=== PATIENT | male | born 1955 | race Hispanic/Latino ===

== ENCOUNTER 2020-11-16 17:24 | Inpatient (IN) | payer OTHER ==
--- NOTE | 2020-11-16 17:33 | Emergency Department Report ---
ED Chest Pain HPI - General Chief Complaint: Chest Pain Stated Complaint: CHEST PAIN PUI?: No Time Seen by Provider: 11/16/20 17:33 Source: patient, EMS ( EMS documentation not available at time of chart dictation ) Mode of arrival: Stretcher Limitations: No Limitations - History of Present Illness Initial Comments: The patient was evaluated in the emergency department for symptoms described in the history of present illness. He/she was evaluated in the context of the global COVID-19 pandemic, which necessitated consideration that the patient might be at risk for infection with the virus that causes COVID-19. Institution al protocols and algorithms that pertain to the evaluation of patients at risk for COVID-19 are in a state of rapid change based on information released by regulatory bodies including the CDC and federal and state organizations. These policies and algorithms were followed during the patient's care in the emergency department. Please note that these policies, procedures and recommendations changed on a rapid basis. Cardiology: [facility], Dr. Mcmillan Past medical history heart disease, 2 stents, takes aspirin on a daily basis. The patient is a 64-year-old gentleman who is not known to myself previously. He reports compliance with his medications. He denies travel, surgery, DVT and pulmonary embolism risk factors. The patient presents to the ER via EMS. Patient states he was in his usual state of health, when approximately 2 hours ago, he developed sudden severe cru shing chest pain, which radiates down his right upper extremity, and he states feels like "to high heels sitting on my chest." He had diaphoresis which is now resolved. He had nausea which is now resolved. He had shortness of breath which is now resolved. He took aspirin prior to arrival. He took 4 tablets of nitroglycerin in total prior to arrival, which decreased his pain from a 10 to a 9. He denies fever, loss of taste and loss of smell. He denies erectile dysfunction medication utilization. He denies methamphetamine/cocaine/illicit drug use. He denies vomiting, hematemesis and bright red blood per rectum. He is still having active pain at this time. MD Complaint: chest pain -: Sudden, hour(s) (2) Onset: during rest Pain Location: substernal Pain Radiation: RUE Severity: severe Severity scale (0 -10): 10 Quality: pressure Consistency: constant Improves With: nothing Worsens With: nothing Treatments Prior to Arrival: aspirin, nitroglycerin Aspirin use within the Past 7 Days: (1) Yes - Related Data Home Medications Medication Instructions Recorded Confirmed Last Taken Aspirin 81 mg PO QDAY 07/05/13 07/05/13 07/05/13 Clopidogrel [Plavix] 75 mg PO QDAY 07/05/13 07/05/13 07/05/13 Nitroglycerin 1 tab-cap SUBLINGUAL PRN 07/05/13 07/05/13 Unknown Simvastatin [Zocor TAB] 40 mg PO QDAY 07/05/13 07/05/13 Unknown Allergies Allergy/AdvReac Type Severity Reaction Status Date / Time No Known Allergies Allergy Unverified 07/05/13 11:07 Heart Score - HEART Score History: Highly suspicious EKG: Significant ST-depression Age: 45-65 Risk factors: 1-2 risk factors Troponin: < normal limit HEART Score: 6 - Critical Actions Critical Actions: 4-6 pts:12-16.6% risk of adverse cardiac event. Should be admitted ED Review of Systems ROS: Stated complaint: CHEST PAIN Other details as noted in HPI Constitutional: denies: fever Eyes: denies: vision change ENT: denies: epistaxis Respiratory: shortness of breath. denies: cough Cardiovascular: chest pain Gastrointestinal: nausea. denies: hematemesis, melena, hematochezia Genitourinary: denies: dysuria Musculoskeletal: denies: back pain Neurological: denies: weakness Hematological/Lymphatic: denies: easy bleeding ED Past Medical Hx - Past Medical History Previous Medical History?: Yes Hx GERD: Yes (related to work stress) Additional medical history: angina - Surgical History Past Surgical History?: Yes Hx Coronary Stent: Yes (2010) - Medications Home Medications: Home Medications Medication Instructions Recorded Confirmed Last Taken Type Aspirin 81 mg PO QDAY 07/05/13 07/05/13 07/05/13 History Clopidogrel [Plavix] 75 mg PO QDAY 07/05/13 07/05/13 07/05/13 History Nitroglycerin 1 tab-cap SUBLINGUAL PRN 07/05/13 07/05/13 Unknown History Simvastatin [Zocor TAB] 40 mg PO QDAY 07/05/13 07/05/13 Unknown History ED Physical Exam - General Limitations: No Limitations General appearance: alert, in no apparent distress - Head Head exam: Present: atraumatic, normocephalic - Eye Eye exam: Present: normal appearance, EOMI. Absent: nystagmus - ENT ENT exam: Present: normal exam, normal orophraynx, mucous membranes moist, normal external ear exam - Neck Neck exam: Present: normal inspection, full ROM. Absent: tenderness, meningismus - Respiratory Respiratory exam: Present: normal lung sounds bilaterally. Absent: respiratory distress, wheezes, rales, rhonchi, stridor, chest wall tenderness, accessory muscle use, decreased breath sounds, prolonged expiratory - Cardiovascular Cardiovascular Exam: Present: regular rate, normal rhythm, normal heart sounds. Absent: bradycardia, tachycardia, irregular rhythm, systolic murmur, diastolic murmur, rubs, gallop - GI/Abdominal GI/Abdominal exam: Present: soft, normal bowel sounds. Absent: distended, tenderness, guarding, rebound, rigid, pulsatile mass - Rectal Rectal exam: Present: deferred - Extremities Exam Extremities exam: Present: normal inspection, full ROM, other (2+ pulses noted in the bilateral upper and lower extremities. There is no palpable cord. negative Homans sign. Muscular compartments are soft. The pelvis is stable.). Absent: pedal edema, calf tenderness - Back Exam Back exam: Present: normal inspection, full ROM. Absent: tenderness, CVA tenderness (R), CVA tenderness (L), paraspinal tenderness, vertebral tenderness - Neurological Exam Neurological exam: Present: alert, oriented X3, normal gait, other (No facial droop. Tongue midline. Extraocular movements intact bilaterally. Facial sensation intact to light touch in V1, V2, V3 distribution bilaterally. 5 and a 5 strength in 4 extremities. Sensation intact to light touch in 4 extremities.). Absent: motor sensory deficit - Psychiatric Psychiatric exam: Present: anxious - Skin Skin exam: Present: warm, dry, intact, normal color. Absent: rash ED Course Vital Signs 11/16/20 11/16/20 11/16/20 17:31 17:32 17:45 Temperature Pulse Rate 60 60 Pulse Rate [ Right Ulnar] Respiratory 18 18 17 Rate Blood Pressure 123/63 Blood Pressure 123/63 [Left] O2 Sat by Pulse 100 100 100 Oximetry 11/16/20 11/16/20 11/16/20 18:13 18:16 20:00 Temperature 97.7 F 98.1 F Pulse Rate 56 L 60 73 Pulse Rate [ Right Ulnar] Respiratory 17 17 Rate Blood Pressure Blood Pressure 95/67 116/68 [Left] O2 Sat by Pulse 100 100 Oximetry 11/16/20 11/16/20 11/16/20 20:04 20:10 20:15 Temperature Pulse Rate 67 Pulse Rate [ 73 Right Ulnar] Respiratory 12 Rate Blood Pressure 119/65 119/65 Blood Pressure [Left] O2 Sat by Pulse 95 97 99 Oximetry 11/16/20 11/16/20 11/16/20 20:20 20:23 20:30 Temperature 98.1 F Pulse Rate 64 67 Pulse Rate [ Right Ulnar] Respiratory 18 11 L Rate Blood Pressure 100/68 100/68 Blood Pressure [Left] O2 Sat by Pulse 97 98 Oximetry 11/16/20 11/16/20 11/17/20 20:40 20:54 00:00 Temperature 97.8 F Pulse Rate 69 62 Pulse Rate [ Right Ulnar] Respiratory 15 Rate Blood Pressure 99/69 Blood Pressure [Left] O2 Sat by Pulse 95 Oximetry 11/17/20 00:04 Temperature Pulse Rate Pulse Rate [ 61 Right Ulnar] Respiratory Rate Blood Pressure Blood Pressure [Left] O2 Sat by Pulse 99 Oximetry - Consultations Consultation #1: 11/16/20 17:53 Discussed patient's history, physical, and EKG with rn school, Dr. Malin. He personally has examined the patient's EKG. We agree that the EKG is consistent with posterior wall STEMI. Patient has already taken aspirin. Dr. Malin recommends heparin drip. He agrees with activating code STEMI overhead. Consultation #2: 11/16/20 18:05 Discussed history, physical, EKG findings with critical care physician on-call, Dr. Middleton, who agrees with placement into the intensive care unit. Patient resting comfortably in stretcher at this time IVANNA score - Ivanna Score Age > 65: (0) No Aspirin use within the Past 7 Days: (1) Yes 3 or more CAD Risk Factors: (1) Yes 2 or more Angina events in past 24 hrs: (1) Yes Known CAD with more than 50% Stenosis: (1) Yes Elevated Cardiac Markers: (0) No ST Deviation Greater than 0.5mm: (1) Yes IVANNA Score: 5 ED Medical Decision Making - Lab Data Result diagrams: 11/16/20 17:42 11/16/20 17:42 Vital Signs 11/16/20 11/16/20 17:31 17:32 Pulse Rate 60 60 Respiratory 18 18 Rate Blood Pressure 123/63 Blood Pressure 123/63 [Left] O2 Sat by Pulse 100 100 Oximetry Lab Results 11/16/20 11/16/20 11/16/20 Range/Units 17:42 17:42 17:42 WBC 12.9 H (4.5-11.0) K/mm3 RBC 4.93 (3.65-5.03) M/mm3 Hgb 15.4 H (11.8-15.2) gm/dl Hct 45.5 (35.5-45.6) % MCV 92 (84-94) fl MCH 31 (28-32) pg MCHC 34 (32-34) % RDW 14.1 (13.2-15.2) % Plt Count 245 (140-440) K/mm3 PT 14.8 (12.2-14.9) Sec. INR 1.18 H (0.87-1.13) APTT 26.2 (24.2-36.6) Sec. Sodium 135 L (137-145) mmol/L Potassium 4.0 (3.6-5.0) mmol/L Chloride 99.3 (98-107) mmol/L Carbon Dioxide 25 (22-30) mmol/L Anion Gap 15 mmol/L BUN 19 (9-20) mg/dL Creatinine 0.9 (0.8-1.3) mg/dL Estimated GFR > 60 ml/min BUN/Creatinine Ratio 21 % Glucose 122 H (75-100) mg/dL Calcium 9.2 (8.4-10.2) mg/dL Total Bilirubin 0.40 (0.1-1.2) mg/dL AST 17 (5-40) units/L ALT 20 (7-56) units/L Alkaline Phosphatase 86 (35-129) units/L Troponin T < 0.010 (0.00-0.029) ng/mL Total Protein 6.3 (6.3-8.2) g/dL Albumin 4.4 (3.9-5) g/dL Albumin/Globulin Ratio 2.3 % Lipase 28 (13-60) units/L - EKG Data -: EKG Interpreted by Me - EKG Data 11/16/20 17:54 The EKG today is consistent with a STEMI. Sinus rhythm, normal axis, bradycardia, incomplete right bundle branch block, left ventricular hypertrophy, ST depression in V1, V2, V3, V4. This EKG is consistent with a STEMI. It is suggestive of a posterior wall myocardial infarction - Radiology Data Radiology results: pending, image reviewed interpreted by me: 1 view x-ray of the chest, interpreted by myself, no pneumothorax, no infiltrates, unremarkable osseous anatomy, cardiac silhouette within normal limits. - Medical Decision Making Differential diagnosis, including but not limited to: Acute coronary syndrome, pericarditis, myocarditis, GERD, gastritis, hiatal hernia Assessment and plan: 64-year-old gentleman, with known history of heart disease, stents, last cardiac catheterization 10 years ago, who reports compliance with his medications, who denies DVT and pulmonary embolism risk factors, who is not currently tachycardic, tachypneic or hypoxic, low risk by Wells criteria, with history suggestive of active ischemic heart disease, and EKG suggestive of posterior myocardial infarction. 2 large-bore IVs, aspirin has already been given, start nitroglycerin, fluids, morphine for pain control, and heparin drip. Interventional cardiology, Dr. Malin, advises activation of the cardiac catheterization lab, which I agree with. Patient updated on plan of care, and he is currently agreeable to this plan of care. Hospital physician, Dr. Bertrand Perera to admit Critical Care Time: Yes Critical care time in (mins) excluding proc time.: 35 Critical care attestation.: If time is entered above; I have spent that time in minutes in the direct care of this critically ill patient, excluding procedure time. ED Disposition Clinical Impression: STEMI (ST elevation myocardial infarction) Qualifiers: Involved coronary artery: other coronary artery Qualified Code(s): I21.29 - ST elevation (STEMI) myocardial infarction involving other sites Disposition: DC-09 OP ADMIT IP TO THIS HOSP Is pt being admited?: Yes Does the pt Need Aspirin: No (already took aspirin) Condition: Critical
[2020-11-16] MEDS ORDERED: NITROGLYCERIN 0.4 MG TAB SUBL SL PRN (17:46)
[2020-11-16] MEDS ORDERED: ONDANSETRON 4 MG/2 ML INJ IV ONE (17:46)
[2020-11-16] MEDS ORDERED: MORPHINE 4 MG/1 ML INJ IV ONE (17:46)
[2020-11-16] MEDS ORDERED: SODIUM CHLORIDE 0.9% 500 ML 500 ML IV ONE (17:46)
[2020-11-16] MEDS ORDERED: HEPARIN 10,000 UNITS/10 ML VIAL IV ONE (17:47)
[2020-11-16] MEDS ORDERED: HEPARIN/ 0.45% NACL DRIP 25,000 UNIT/500 ML BAG IV SCH (18:00)
[2020-11-16 18:05] LABS: Hematocrit 45.5 % (35.5-45.6); Hemoglobin 15.4 gm/dl (11.8-15.2); Mean Corpuscular HGB Conc 34 % (32-34); Mean Corpuscular Volume 92 fl (84-94); Platelet Count 245 K/mm3 (140-440); Red Blood Count 4.93 M/mm3 (3.65-5.03); Red Cell Distribution Width 14.1 % (13.2-15.2)
[2020-11-16 18:13] LABS: INR 1.18 (0.87-1.13); Partial Thromboplastin Time 26.2 Sec. (24.2-36.6)
[2020-11-16] MEDS ORDERED: MIDAZOLAM 2 MG/2 ML INJ ONE (18:16)
[2020-11-16] MEDS ORDERED: VERAPAMIL 5 MG/2 ML INJ ONE (18:16)
[2020-11-16] MEDS ORDERED: LIDOCAINE (2%) 20 MG/1 ML VIAL 20 ML MDV INFILTRATI ONE (18:16)
[2020-11-16] MEDS ORDERED: HEPARIN/NS 5000 UNIT/500ML 1,000 ML IR ONE (18:16)
[2020-11-16] MEDS ORDERED: NITROGLYCERIN SYRINGE 3 ML ONE (18:17)
[2020-11-16 18:19] LABS: Alanine Aminotransferase 20 units/L (7-56); Albumin 4.4 g/dL (3.9-5); BUN/Creatinine Ratio 21; Blood Urea Nitrogen 19 mg/dL (9-20); Calcium 9.2 mg/dL (8.4-10.2); Hemolysis Index 4
[2020-11-16] MEDS: fentaNYL 100 MCG/2 ML INJ ONE ×2 (18:32→18:54)
[2020-11-16] MEDS ORDERED: SODIUM CHLORIDE 0.9% 1000 ML 1,000 ML ONE (18:35)
[2020-11-16] MEDS ORDERED: HEPARIN/NS 5000 UNIT/500ML 500 ML IR ONE (18:38)
[2020-11-16] MEDS: HEPARIN 10,000 UNITS/10 ML VIAL ONE ×3 (18:40→19:09)
[2020-11-16] MEDS ORDERED: EPINEPHrine 1 MG/10 ML SYRINGE ONE (18:47)
[2020-11-16] MEDS ORDERED: LIDOCAINE PF 100 MG/5 ML (CARDIAC SYRINGE) IV ONE (18:47)
[2020-11-16] MEDS ORDERED: ATROPINE 0.1% (1 MG/10 ML) CARDIAC SYRINGE ONE (18:47)
[2020-11-16] MEDS ORDERED: PHENYLEPHRINE/NS 1,000 MCG/10 ML SYRINGE (OR USE) IV ONE (18:48)
[2020-11-16] MEDS ORDERED: TIROFIBAN/NS 12,500 MCG/250 ML BAG IV ONE (18:56)
[2020-11-16] MEDS: TIROFIBAN/NS 12,500 MCG/250 ML BAG IV SCH (19:09)
--- NOTE | 2020-11-16 19:09 | XRay Report ---
CHEST 1 VIEW INDICATION: Chest Pain. COMPARISON: None. FINDINGS: Support devices: None. Heart: Normal. Lungs/Pleura: No consolidation or effusion, no pneumothorax. There are mild bilateral reticular racheal ngs. IMPRESSION: 1. Mild increased interstitial markings in both lungs are of uncertain chronicity. No consolidation o r effusion. Signer Name: William Burns MD Signed: 11/16/2020 7:04 PM Workstation Name: [id number]
[2020-11-16] MEDS ORDERED: ALUM-MAG HYDROXIDE-SIMETHICONE 200-200-20MG/5ML ORAL LIQD 30 ML ONE (19:19)
[2020-11-16] MEDS ORDERED: TICAGRELOR 90 MG TAB ONE (19:19)
[2020-11-16] MEDS ORDERED: HYDROcodone/ACETAMINOPHEN 5-325 MG TAB PO PRN (19:36)
--- NOTE | 2020-11-16 19:47 | Consultation ---
History of Present Illness Consult date: 11/16/20 Requesting physician: BENIGNO TALLEY Consult reason: chest pain History of present illness: Patient is a 64-year-old gentleman with a history of hypertension coronary artery disease prior PCI smoking hyperlipidemia who presented to the hospital with chest pain. Apparently was changing a light bulb when he had a sudden onset of chest pain radiating to his back associated with shortness of breath. [place] lightheaded and diaphoretic. He called EMT and on arrival to the hospital was noted to have posterior [place]. Patient was emergently taken to the [facility] and he underwent PCI of late stent thrombosis of the circumflex. Postprocedure patient is doing very well. Currently describes no chest pain or shortness of breath. Patient is being admitted post PCI. Past History Past Medical History: CAD, hypertension, hyperlipidemia Past Surgical History: No surgical history Social history: smoking Medications and Allergies Allergies Allergy/AdvReac Type Severity Reaction Status Date / Time No Known Allergies Allergy Unverified 07/05/13 11:07 Home Medications Medication Instructions Recorded Confirmed Last Taken Type Aspirin 81 mg PO QDAY 07/05/13 07/05/13 07/05/13 History Clopidogrel [Plavix] 75 mg PO QDAY 07/05/13 07/05/13 07/05/13 History Nitroglycerin 1 tab-cap SUBLINGUAL PRN 07/05/13 07/05/13 Unknown History Simvastatin [Zocor TAB] 40 mg PO QDAY 07/05/13 07/05/13 Unknown History Active Meds: Active Medications Hydrocodone Bitart/Acetaminophen (Hydrocodone/Acetaminophen 5-325 Mg Tab) 1 each PO Q6H PRN PRN Reason: Pain, Moderate (4-6) Aspirin (Aspirin 81 Mg Tab Chew) 81 mg PO QDAY JARROD Atorvastatin Calcium (Atorvastatin 40 Mg Tab) 80 mg PO QHS JARROD Carvedilol (Carvedilol 3.125 Mg Tab) 6.25 mg PO BID JARROD Sodium Chloride (Nacl 0.9% 1000 Ml) 1,000 mls @ 75 mls/hr IV DIRECT JARROD Tirofiban/Sodium Chloride (Aggrastat Drip (12.5 Mg/250 Ml)) 12,500 mcg in 250 mls @ 0 mls/hr IV DIRECT JARROD; Protocol Nitroglycerin (Nitroglycerin 0.4 Mg Tab Subl) 0.4 mg SL .Q5MIN PRN PRN Reason: Chest Pain Pantoprazole Sodium (Pantoprazole 40 Mg Tab) 40 mg PO QDAC JARROD Ticagrelor (Ticagrelor 90 Mg Tab) 90 mg PO BID JARROD Review of Systems All systems: negative (As mentioned in the H&P) Physical Examination Vital Signs Pulse Resp BP Pulse Ox 60 18 123/63 100 11/16/20 17:31 11/16/20 17:31 11/16/20 17:31 11/16/20 17:31 General appearance: no acute distress HEENT: Positive: Normocephaly Neck: Positive: trachea midline Cardiac: Positive: Reg Rate and Rhythm Lungs: Positive: clear to auscultation Neuro: Positive: Grossly Intact Abdomen: Positive: Unremarkable Extremities: Present: normal Results 11/16/20 17:42 11/16/20 17:42 Cardiac Enzymes 11/16/20 Range/Units 17:42 AST 17 (5-40) units/L Coagulation 11/16/20 Range/Units 17:42 PT 14.8 (12.2-14.9) Sec. INR 1.18 H (0.87-1.13) APTT 26.2 (24.2-36.6) Sec. CBC 11/16/20 Range/Units 17:42 WBC 12.9 H (4.5-11.0) K/mm3 RBC 4.93 (3.65-5.03) M/mm3 Hgb 15.4 H (11.8-15.2) gm/dl Hct 45.5 (35.5-45.6) % Plt Count 245 (140-440) K/mm3 Comprehensive Metabolic Panel 11/16/20 Range/Units 17:42 Sodium 135 L (137-145) mmol/L Potassium 4.0 (3.6-5.0) mmol/L Chloride 99.3 (98-107) mmol/L Carbon Dioxide 25 (22-30) mmol/L BUN 19 (9-20) mg/dL Creatinine 0.9 (0.8-1.3) mg/dL Glucose 122 H (75-100) mg/dL Calcium 9.2 (8.4-10.2) mg/dL AST 17 (5-40) units/L ALT 20 (7-56) units/L Alkaline Phosphatase 86 (35-129) units/L Total Protein 6.3 (6.3-8.2) g/dL Albumin 4.4 (3.9-5) g/dL EKG interpretations - Telemetry EKG Rhythm: Sinus Rhythm (With significant anterior ST depression suggestive of posterior [place]) Assessment and Plan Impression: 1. Acute posterior [place] status post primary PCI 2. 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 Hypertension 4. Hyperlipidemia 5. Tobacco abuse Plan : 1. Routine pharmacological therapy post primary PCI 2. Aggrastat for 18 hours 3. Dual antiplatelet therapy for 1 year 4. Beta-blockers high-dose statins 5. 2D echo 6. Smoking cessation
[2020-11-16 20:23] LABS: Total Cells Counted 100
[2020-11-16 20:25] LABS: Ovalocytes Rare; Platelet Estimate Consistent w Auto
[2020-11-16] MEDS: SODIUM CHLORIDE 0.9% 1000 ML 1,000 ML IV SCH (20:30)
--- NOTE | 2020-11-16 20:34 | Cardiac Catherization Report ---
CORONARY ANGIOGRAM AND PERCUTANEOUS INTRAVENATION REPORT PROCEDURE PERFORMED: 1. Left and right coronary angiogram. 2. Left ventriculogram. 3. Percutaneous intervention of a stent thrombosis of the mid circumflex. EMAIL MANAGER: Dr. Liban Malin INDICATION: Acute posterior wall, ST elevation MS. PROCEDURE DETAILS: 1. The patient was prepped and draped in a sterile fashion after informed consent. 2. The right groin was anesthetized using local Lidocaine infiltration. 3. The right radial artery was entered using the Seldinger technique, followed by the placement of a 6-Palauan sheath. 4. Selective left and right coronary angiography was performed using 6-Palauan Emiliana catheters. Angiograms were done in multiple projections. 5. Selective left ventricular angiography was done using a 6-Palauan pigtail catheter. Left ventricular angiography was performed in the right anterior oblique projection. 6. The catheters were withdrawn, the sheath removed, and hemostasis was achieved. 7. The patient was transferred to the post cardiac catheterization unit in stable condition. There were no complications, equipment malfunction, or technical difficulties. 2. Angiograms were reviewed in the setting of an acute ST elevation MS and 100% occlusion of the circumflex, we decided to proceed with PCI of the circumflex. 3. Intravenous heparin was used to maintain therapeutic ACT. An Intravenous Aggrastat was also started. However, when we were trying to advance a 6-Palauan XB 3.5 guide catheter, there was significant radial spasm. The J wire was exchanged for a BMW wire. Then, a 2.0 balloon was advanced to the tip of the guide catheter, inflated at very low atmospheres and then the balloon and the guidewire advanced through the spasm. Following this, the balloon and the guidewire was removed and a J-wire was advanced over the aortic arch. The EBU 3.5 was then engaged in the left main coronary artery. The patient at time suddenly went into V-fib and was immediately cardioverted to normal sinus rhythm. The patient immediately became awake, but reported no significant chest pain or worsening of symptoms. A BMW wire was then used to cross the 100% occlusion of the mid circumflex. After initial pre-dilatation, a 2.75 x 18 mm Resolute drug-eluting stent was deployed across the stenosis with excellent results. The current stent and the overlap segment of the previous stent was postdilated with a 2.75 noncompliant balloon to high atmospheres. We noticed that there was a takeoff of a small to medium caliber OM branch with subtotal ostial occlusion with IVANNA 2 flow. As the patient was chest pain free, we decided to treat this medically. The wire and guide were removed. The patient was given 180 mg of Brilinta. Sheath was removed and TR band applied. The patient tolerated the procedure well, and had complete resolution of chest pain. FINDINGS: HEMODYNAMICS: AO 107/69, LV 110/28. ANGIOGRAM DETAILS: 1. Left main is angiographically normal. 2. LAD has mild luminal irregularities. 3. The circumflex is a medium caliber vessel. There is a 100% mid vessel late stent thrombosis noted. 4. The RCA is a medium to large caliber dominant vessel with moderate calcification, but no significant stenosis. 5. Left ventriculogram done in JACOB projection shows inferior hypokinesis, moderately reduced LV systolic function, EF 35-40%. CULPRIT LESION: 1. The mid circumflex late stent thrombosis. 2. Preprocedure IVANNA flow 0. 3. Preprocedure stenosis was 100%. 4. Postprocedure IVANNA flow is 3. 5. Postprocedural stenosis 0%. 6. Stent deployed 2.75 x 18 mm Resolute drug-eluting stent. IMPRESSION: 1. Status post primary PCI for late stent thrombosis of the mid LCx 2. One episode of yolanda procedural Vfib S/P successful cardioversion 3. Moderately reduced LV systolic function with inferior hypokinesis, EF 35-40%. PLAN: 1. Routine pharmacotherapy post-PCI. 2. Dual antiplatelet therapy for 1 year, preferably more. 3. Aggrastat for 18 hours. 4. Routine radial artery sheath care. Please note that patient had radial artery spasm. We had to use a guide wire and balloon technique to advance the guide catheter in the radial artery. This technical challenge contributed to the delay in the door to balloon tme. JOB# [id number] RR/NTS CHELSEAD
[2020-11-16] MEDS ORDERED: TICAGRELOR 90 MG TAB PO SCH (22:00)
[2020-11-16] MEDS ORDERED: carvediloL 3.125 MG TAB PO SCH (22:00)
[2020-11-16] MEDS ORDERED: carvediloL 6.25 MG TAB PO SCH (22:00)
--- NOTE | 2020-11-16 22:57 | History and Physical Report ---
History of Present Illness Date of examination: 11/16/20 Date of admission: 11/16/20 17:57 Chief complaint: Severe retrosternal chest pain for 2 hours History of present illness: 64-year-old gentleman presents to the ER via EMS. Patient states he was in his usual state of health, when approximately 2 hours ago, he developed sudden severe crushing chest pain, which radiates down his right upper extremity, and he states feels like "to high heels sitting on my chest." He had diaphoresis which is now resolved. He had nausea which is now resolved. He had shortness of breath which is now resolved. He took aspirin prior to arrival. He took 4 tablets of nitroglycerin in total prior to arrival, which decreased his pain from a 10 to a 9. He denies fever, loss of taste and loss of smell. He denies methamphetamine/cocaine/illicit drug use. He denies vomiting, hematemesis and bright red blood per rectum. He is still having active pain at this time. MD Complaint: chest pain -: Sudden, hour(s) (2) Onset: during rest Pain Location: substernal Pain Radiation: RUE Severity: severe Severity scale (0 -10): 10 Quality: pressure Consistency: constant Improves With: nothing Worsens With: nothing Treatments Prior to Arrival: aspirin, nitroglycerin Aspirin use within the Past 7 Days: (1) Yes Patient had ventricular fibrillation during the cardiac cath procedure which was cardioverted immediately - Heart Score - HEART Score History: Highly suspicious EKG: Significant ST-depression Age: 45-65 Risk factors: 1-2 risk factors Troponin: < normal limit HEART Score: 6 - Critical Actions Critical Actions: 4-6 pts:12-16.6% risk of adverse cardiac event. Should be admitted - Past Medical History Previous Medical History?: Yes Heart disease, 2 stents, takes aspirin on a daily basis. --angina --GERD: Yes (related to work stress) - Surgical History Past Surgical History?: Yes --Coronary Stent: Yes (2010) - Medications Home Medications: Home Medications Medication Instructions Recorded Confirmed Last Taken Type Aspirin 81 mg PO QDAY 07/05/13 07/05/13 07/05/13 History Clopidogrel [Plavix] 75 mg PO QDAY 07/05/13 07/05/13 07/05/13 History Nitroglycerin 1 tab-cap SUBLINGUAL PRN 07/05/13 07/05/13 Unknown History Simvastatin [Zocor TAB] 40 mg PO QDAY 07/05/13 07/05/13 Unknown History Review of Systems ROS: Stated complaint: CHEST PAIN Other details as noted in HPI Constitutional: denies: fever Eyes: denies: vision change ENT: denies: epistaxis Respiratory: shortness of breath. denies: cough Cardiovascular: chest pain Gastrointestinal: nausea. denies: hematemesis, melena, hematochezia Genitourinary: denies: dysuria Musculoskeletal: denies: back pain Neurological: denies: weakness Hematological/Lymphatic: denies: easy bleeding Past History Past Medical History: CAD, hypertension, hyperlipidemia Past Surgical History: No surgical history Social history: smoking Medications and Allergies Allergies Allergy/AdvReac Type Severity Reaction Status Date / Time No Known Allergies Allergy Unverified 07/05/13 11:07 Home Medications Medication Instructions Recorded Confirmed Last Taken Type Aspirin 81 mg PO QDAY 07/05/13 07/05/13 07/05/13 History Clopidogrel [Plavix] 75 mg PO QDAY 07/05/13 07/05/13 07/05/13 History Nitroglycerin 1 tab-cap SUBLINGUAL PRN 07/05/13 07/05/13 Unknown History Simvastatin [Zocor TAB] 40 mg PO QDAY 07/05/13 07/05/13 Unknown History Active Meds: Active Medications Hydrocodone Bitart/Acetaminophen (Hydrocodone/Acetaminophen 5-325 Mg Tab) 1 each PO Q6H PRN PRN Reason: Pain, Moderate (4-6) Aspirin (Aspirin 81 Mg Tab Chew) 81 mg PO QDAY JARROD Atorvastatin Calcium (Atorvastatin 40 Mg Tab) 80 mg PO QHS JARROD Carvedilol (Carvedilol 6.25 Mg Tab) 6.25 mg PO BID JARROD Sodium Chloride (Nacl 0.9% 1000 Ml) 1,000 mls @ 75 mls/hr IV DIRECT JARROD Last Admin: 11/16/20 20:30 Dose: 75 mls/hr Documented by: Tirofiban/Sodium Chloride (Aggrastat Drip (12.5 Mg/250 Ml)) 12,500 mcg in 250 mls @ 15 mls/hr IV DIRECT JARROD; Protocol Stop: 11/17/20 14:00 Last Admin: 11/16/20 19:09 Dose: 14.94 mls Documented by: Nitroglycerin (Nitroglycerin 0.4 Mg Tab Subl) 0.4 mg SL .Q5MIN PRN PRN Reason: Chest Pain Pantoprazole Sodium (Pantoprazole 40 Mg Tab) 40 mg PO QDAC JARROD Ticagrelor (Ticagrelor 90 Mg Tab) 90 mg PO BID JARROD Exam - Constitutional Vitals: Temp Pulse Resp BP Pulse Ox 98.1 F 69 15 99/69 95 11/16/20 20:23 11/16/20 20:40 11/16/20 20:40 11/16/20 20:40 11/16/20 20:40 General appearance: Present: no acute distress, well-nourished - EENT Eyes: Present: PERRL ENT: hearing intact, clear oral mucosa - Neck Neck: Present: supple, normal ROM - Respiratory Respiratory effort: normal Respiratory: bilateral: CTA - Cardiovascular Heart rate: 78 Rhythm: regular Heart Sounds: Present: S1 & S2. Absent: rub, click - Extremities Extremities: no ischemia, pulses intact, pulses symmetrical, No edema Peripheral Pulses: within normal limits - Abdominal General gastrointestinal: Present: soft, non-tender, non-distended, normal bowel sounds Male genitourinary: Present: normal - Integumentary Integumentary: Present: clear, warm, dry - Musculoskeletal Musculoskeletal: gait normal, strength equal bilaterally - Psychiatric Psychiatric: appropriate mood/affect, intact judgment & insight - Neurologic Neurologic: CNII-XII intact, moves all extremities HEART Score - HEART Score EKG: Significant ST-depression Age: 45-65 Risk factors: 1-2 risk factors Troponin: Troponin T < 0.010 ng/mL (0.00-0.029) 11/16/20 17:42 Troponin: < normal limit - Critical Actions Critical Actions: 4-6 pts:12-16.6% risk of adverse cardiac event. Should be admitted Results - Labs CBC & Chem 7: 11/17/20 07:02 11/17/20 07:02 Labs: Laboratory Last Values WBC 12.9 K/mm3 (4.5-11.0) H 11/16/20 17:42 RBC 4.93 M/mm3 (3.65-5.03) 11/16/20 17:42 Hgb 15.4 gm/dl (11.8-15.2) H 11/16/20 17:42 Hct 45.5 % (35.5-45.6) 11/16/20 17:42 MCV 92 fl (84-94) 11/16/20 17:42 MCH 31 pg (28-32) 11/16/20 17:42 MCHC 34 % (32-34) 11/16/20 17:42 RDW 14.1 % (13.2-15.2) 11/16/20 17:42 Plt Count 245 K/mm3 (140-440) 11/16/20 17:42 Add Manual Diff Complete 11/16/20 17:42 Total Counted 100 11/16/20 17:42 Seg Neuts % (Manual) 80.0 % (40.0-70.0) H 11/16/20 17:42 Lymphocytes % (Manual) 11.0 % (13.4-35.0) L 11/16/20 17:42 Monocytes % (Manual) 7.0 % (0.0-7.3) 11/16/20 17:42 Eosinophils % (Manual) 1.0 % (0.0-4.3) 11/16/20 17:42 Basophils % (Manual) 1.0 % (0.0-1.8) 11/16/20 17:42 Nucleated RBC % Not Reportable 11/16/20 17:42 Seg Neutrophils # Man 10.3 K/mm3 (1.8-7.7) H 11/16/20 17:42 Band Neutrophils # 0.0 K/mm3 11/16/20 17:42 Lymphocytes # (Manual) 1.4 K/mm3 (1.2-5.4) 11/16/20 17:42 Abs React Lymphs (Man) 0.0 K/mm3 11/16/20 17:42 Monocytes # (Manual) 0.9 K/mm3 (0.0-0.8) H 11/16/20 17:42 Eosinophils # (Manual) 0.1 K/mm3 (0.0-0.4) 11/16/20 17:42 Basophils # (Manual) 0.1 K/mm3 (0.0-0.1) 11/16/20 17:42 Metamyelocytes # 0.0 K/mm3 11/16/20 17:42 Myelocytes # 0.0 K/mm3 11/16/20 17:42 Promyelocytes # 0.0 K/mm3 11/16/20 17:42 Blast Cells # 0.0 K/mm3 11/16/20 17:42 WBC Morphology Not Reportable 11/16/20 17:42 Hypersegmented Neuts Not Reportable 11/16/20 17:42 Hyposegmented Neuts Not Reportable 11/16/20 17:42 Hypogranular Neuts Not Reportable 11/16/20 17:42 Smudge Cells Not Reportable 11/16/20 17:42 Toxic Granulation Not Reportable 11/16/20 17:42 Toxic Vacuolation Not Reportable 11/16/20 17:42 Dohle Bodies Not Reportable 11/16/20 17:42 Pelger-Huet Anomaly Not Reportable 11/16/20 17:42 Tatiana Rods Not Reportable 11/16/20 17:42 Platelet Estimate Consistent w auto 11/16/20 17:42 Clumped Platelets Not Reportable 11/16/20 17:42 Plt Clumps, EDTA Not Reportable 11/16/20 17:42 Large Platelets Not Reportable 11/16/20 17:42 Giant Platelets Not Reportable 11/16/20 17:42 Platelet Satelliting Not Reportable 11/16/20 17:42 Plt Morphology Comment Not Reportable 11/16/20 17:42 RBC Morphology Not Reportable 11/16/20 17:42 Dimorphic RBCs Not Reportable 11/16/20 17:42 Polychromasia Not Reportable 11/16/20 17:42 Hypochromasia Not Reportable 11/16/20 17:42 Poikilocytosis Not Reportable 11/16/20 17:42 Anisocytosis Not Reportable 11/16/20 17:42 Microcytosis Not Reportable 11/16/20 17:42 Macrocytosis Not Reportable 11/16/20 17:42 Spherocytes Not Reportable 11/16/20 17:42 Pappenheimer Bodies Not Reportable 11/16/20 17:42 Sickle Cells Not Reportable 11/16/20 17:42 Target Cells Not Reportable 11/16/20 17:42 Tear Drop Cells Not Reportable 11/16/20 17:42 Ovalocytes Rare 11/16/20 17:42 Helmet Cells Not Reportable 11/16/20 17:42 Mcnair-Cosby Bodies Not Reportable 11/16/20 17:42 [place] Rings Not Reportable 11/16/20 17:42 Bomoseen Cells Not Reportable 11/16/20 17:42 Bite Cells Not Reportable 11/16/20 17:42 Crenated Cell Not Reportable 11/16/20 17:42 Elliptocytes Not Reportable 11/16/20 17:42 Acanthocytes (Spur) Not Reportable 11/16/20 17:42 Rouleaux Not Reportable 11/16/20 17:42 Hemoglobin C Crystals Not Reportable 11/16/20 17:42 Schistocytes Not Reportable 11/16/20 17:42 Malaria parasites Not Reportable 11/16/20 17:42 Smooth Bodies Not Reportable 11/16/20 17:42 Hem Pathologist Commnt No 11/16/20 17:42 PT 14.8 Sec. (12.2-14.9) 11/16/20 17:42 INR 1.18 (0.87-1.13) H 11/16/20 17:42 APTT 26.2 Sec. (24.2-36.6) 11/16/20 17:42 Sodium 135 mmol/L (137-145) L 11/16/20 17:42 Potassium 4.0 mmol/L (3.6-5.0) 11/16/20 17:42 Chloride 99.3 mmol/L (98-107) 11/16/20 17:42 Carbon Dioxide 25 mmol/L (22-30) 11/16/20 17:42 Anion Gap 15 mmol/L 11/16/20 17:42 BUN 19 mg/dL (9-20) 11/16/20 17:42 Creatinine 0.9 mg/dL (0.8-1.3) 11/16/20 17:42 Estimated GFR > 60 ml/min 11/16/20 17:42 BUN/Creatinine Ratio 21 % 11/16/20 17:42 Glucose 122 mg/dL (75-100) H 11/16/20 17:42 Calcium 9.2 mg/dL (8.4-10.2) 11/16/20 17:42 Magnesium 2.00 mg/dL (1.7-2.3) 11/16/20 17:49 Total Bilirubin 0.40 mg/dL (0.1-1.2) 11/16/20 17:42 AST 17 units/L (5-40) 11/16/20 17:42 ALT 20 units/L (7-56) 11/16/20 17:42 Alkaline Phosphatase 86 units/L (35-129) 11/16/20 17:42 Troponin T < 0.010 ng/mL (0.00-0.029) 11/16/20 17:42 Total Protein 6.3 g/dL (6.3-8.2) 11/16/20 17:42 Albumin 4.4 g/dL (3.9-5) 11/16/20 17:42 Albumin/Globulin Ratio 2.3 % 11/16/20 17:42 Lipase 28 units/L (13-60) 11/16/20 17:42 Short CBC 11/16/20 11/17/20 Range/Units 17:42 07:02 WBC 12.9 H 8.6 (4.5-11.0) K/mm3 Hgb 15.4 H 13.8 (11.8-15.2) gm/dl Hct 45.5 40.7 (35.5-45.6) % Plt Count 245 205 (140-440) K/mm3 BMP 11/16/20 11/17/20 17:42 07:02 Sodium 135 L 138 Potassium 4.0 4.1 Chloride 99.3 105.2 Carbon Dioxide 25 29 BUN 19 15 Creatinine 0.9 0.8 Glucose 122 H 83 Calcium 9.2 8.6 Cardiac Enzymes 11/16/20 11/17/20 Range/Units 17:42 07:02 Total Creatine Kinase 2246 H (55-170) units/L CK-MB (CK-2) 288.8 H (0.0-4.0) ng/mL Troponin T < 0.010 4.880 H* D (0.00-0.029) ng/mL Liver Function 11/16/20 Range/Units 17:42 Total Bilirubin 0.40 (0.1-1.2) mg/dL AST 17 (5-40) units/L ALT 20 (7-56) units/L Alkaline Phosphatase 86 (35-129) units/L Albumin 4.4 (3.9-5) g/dL - Imaging and Cardiology EKG: report reviewed (Sinus bradycardia heart rate of 57/min nonspecific and ventricular conduction delay acute posterior infarct ST depression on exam V2 V3 and V4) Carrion/IV: IV Catheter Type [Left Hand] INT / Saline Lock Assessment and Plan Assessment and plan: Clinical care statement The high probability OF a clinically significant sudden or life-threatening deterioration of the cardiorespiratory system and endocrine system required my full and direct attention, intervention and postoperative management. The aggregate critical care time was 35 minutes. The time is in addition to time spent performing reported procedures but includes the followin: Data review and interpretation 2: Patient assessment and monitoring of vital signs 3: Documentation 4:: Medication orders and management Advance Directives: Yes (Full code) VTE prophylaxis?: Chemical Plan of care discussed with patient/family: Yes - Patient Problems (1) STEMI (ST elevation myocardial infarction) Current Visit: Yes Status: Acute Qualifiers: Involved coronary artery: other coronary artery Qualified Code(s): I21.29 - ST elevation (STEMI) myocardial infarction involving other sites Plan to address problem: Patient was seen in [facility] and was diagnosed with acute STEMI and sent to quality assurance/r&d lab technician for cardiac cath and pci Cath findings-- Angiogram revealed in the setting of an acute anterior STEMI [place] 100% occlusion of the circumflex. PCI of the circumflex was done stent was placed IV heparin was used to maintain therapeutic anticoagulation therapy. Also Aggrastat was started. 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 fib s/p successful cardioversion Moderately reduced LV systolic function with inferior hypokinesis EF is 35 to 40% Patient on Aggrastat for 18 hrs (2) Ventricular fibrillation Current Visit: Yes Status: Acute Plan to address problem: Patient had ventricular fibrillation during the cardiac cath procedure. Patient was cardioverted immediately and has been in stable sinus rhythm (3) Sinus bradycardia Current Visit: Yes Status: Acute Plan to address problem: Resolved after the stent placement (4) CAD (coronary artery disease) Current Visit: Yes Status: Chronic Qualifiers: Coronary Disease-Associated Artery/Lesion type: [place] artery Plan to address problem: Cont DAPT (5) HLD (hyperlipidemia) Current Visit: Yes Status: Chronic Qualifiers: Hyperlipidemia type: mixed hyperlipidemia Qualified Code(s): E78.2 - Mixed hyperlipidemia Plan to address problem: On High intensity Statins (6) Nicotine dependence Current Visit: Yes Status: Chronic Qualifiers: Nicotine product type: cigarettes Plan to address problem: Counselled and started on Nicoderm patch (7) DVT prophylaxis Current Visit: Yes Status: Acute Plan to address problem: On Aggrastat and GI prophyaxis
[2020-11-16] MEDS ORDERED: HYDROmorphone 1 MG/1 ML INJ IV PRN (22:58)
[2020-11-16] MEDS ORDERED: ACETAMINOPHEN 325 MG TAB PO PRN (22:58)
[2020-11-16] MEDS ORDERED: METOCLOPRAMIDE 10 MG/2 ML INJ IV PRN (22:58)
[2020-11-16] MEDS ORDERED: ONDANSETRON 4 MG/2 ML INJ IV PRN (22:58)
[2020-11-16] MEDS ORDERED: oxyCODONE /ACETAMINOPHEN 5-325MG TAB PO PRN (22:58)
[2020-11-16] MEDS ORDERED: NITROGLYCERIN 2.5 MG SUBLINGUAL SCH (23:00)
--- NOTE | 2020-11-17 04:53 | XRay Report ---
CHEST 1 VIEW [id number] INDICATION / CLINICAL INFORMATION: post pci COMPARISON: 11/16/2020 FINDINGS: SUPPORT DEVICES: None HEART / MEDIASTINUM: Stable LUNGS / PLEURA: No significant pulmonary or pleural abnormality. No pneumothorax. ADDITIONAL FINDINGS: No significant additional findings. Signer Name: Willy Canada MD Signed: 11/17/2020 4:49 AM Workstation Name: [id number]
[2020-11-17] MEDS: TICAGRELOR 90 MG TAB PO SCH ×2 (04:54→22:52)
[2020-11-17] MEDS: carvediloL 6.25 MG TAB PO SCH ×2 (04:55→22:52)
[2020-11-17] MEDS: TIROFIBAN/NS 12,500 MCG/250 ML BAG IV SCH (05:19)
[2020-11-17 07:53] LABS: Basophils # (Auto) 0.1 K/mm3 (0.0-0.1); Basophils % (Auto) 0.9 % (0.0-1.8); Eosinophils # (Auto) 0.3 K/mm3 (0.0-0.4); Eosinophils % (Auto) 3.5 % (0.0-4.3); Hematocrit 40.7 % (35.5-45.6); Hemoglobin 13.8 gm/dl (11.8-15.2); Lymphocytes # (Auto) 1.7 K/mm3 (1.2-5.4); Lymphocytes % (Auto) 19.8 % (13.4-35.0); Mean Corpuscular HGB Conc 34 % (32-34); Mean Corpuscular Volume 93 fl (84-94); Monocytes # (Auto) 0.6 K/mm3 (0.0-0.8); Monocytes % (Auto) 7.3 % (0.0-7.3); Platelet Count 205 K/mm3 (140-440); Red Blood Count 4.39 M/mm3 (3.65-5.03); Red Cell Distribution Width 14.1 % (13.2-15.2)
[2020-11-17 08:00] LABS: Creatine Kinase MB 288.8 ng/mL (0.0-4.0)
[2020-11-17 08:02] LABS: BUN/Creatinine Ratio 19; Blood Urea Nitrogen 15 mg/dL (9-20); Calcium 8.6 mg/dL (8.4-10.2); Hemolysis Index 5
[2020-11-17 08:36] LABS: Chol/HDL Ratio 2.93 %; HDL Cholesterol 32 mg/dL (40-59); LDL Cholesterol,Direct 56 mg/dL (50-130)
[2020-11-17] MEDS ORDERED: ASPIRIN 325 MG TAB PO SCH (10:00)
[2020-11-17] MEDS ORDERED: FAMOTIDINE 20 MG/2 ML INJ IV SCH (10:00)
[2020-11-17] MEDS ORDERED: CLOPIDOGREL 75 MG TAB PO SCH (10:00)
[2020-11-17] MEDS ORDERED: NON-FORMULARY EACH (Simvastatin 40 MG Tablet) PO SCH (10:00)
--- NOTE | 2020-11-17 10:26 | Consultation ---
History of Present Illness - Reason for Consult Consult date: 11/17/20 STEMI Requesting physician: JUANI REED - History of Present Illness 64 y/o white male, admitted to ICU post PCI for stemi. Awake and alert, no complaints. Mask on with oxygen intact. Past History Past Medical History: CAD, hypertension, hyperlipidemia Past Surgical History: No surgical history Social history: smoking Medications and Allergies Allergies Allergy/AdvReac Type Severity Reaction Status Date / Time No Known Allergies Allergy Unverified 07/05/13 11:07 Home Medications Medication Instructions Recorded Confirmed Last Taken Type Aspirin 81 mg PO QDAY 07/05/13 07/05/13 07/05/13 History Clopidogrel [Plavix] 75 mg PO QDAY 07/05/13 07/05/13 07/05/13 History Nitroglycerin 1 tab-cap SUBLINGUAL PRN 07/05/13 07/05/13 Unknown History Simvastatin [Zocor TAB] 40 mg PO QDAY 07/05/13 07/05/13 Unknown History Active Meds: Active Medications Acetaminophen (Acetaminophen 325 Mg Tab) 650 mg PO Q4H PRN PRN Reason: Pain MILD(1-3)/Fever >100.5/OKEEFE Aspirin (Aspirin 81 Mg Tab Chew) 81 mg PO QDAY JARROD Atorvastatin Calcium (Atorvastatin 40 Mg Tab) 80 mg PO QHS JARROD Last Admin: 11/17/20 04:52 Dose: 80 mg Documented by: Carvedilol (Carvedilol 6.25 Mg Tab) 6.25 mg PO BID JARROD Last Admin: 11/17/20 04:55 Dose: Not Given Documented by: Hydromorphone HCl (Hydromorphone 1 Mg/1 Ml Inj) 0.5 mg IV Q3H PRN PRN Reason: Pain , Severe (7-10) Sodium Chloride (Nacl 0.9% 1000 Ml) 1,000 mls @ 75 mls/hr IV DIRECT JARROD Last Admin: 11/16/20 20:30 Dose: 75 mls/hr Documented by: Tirofiban/Sodium Chloride (Aggrastat Drip (12.5 Mg/250 Ml)) 12,500 mcg in 250 mls @ 15 mls/hr IV DIRECT JARROD; Protocol Stop: 11/17/20 14:00 Last Admin: 11/17/20 05:19 Dose: 15 mls/hr Documented by: Metoclopramide HCl (Metoclopramide 10 Mg/2 Ml Inj) 10 mg IV Q6H PRN PRN Reason: Nausea And Vomiting Nicotine (Nicotine 14 Mg/24 Hr Patch) 14 mg TD QDAY [facility] Nitroglycerin (Nitroglycerin 0.4 Mg Tab Subl) 0.4 mg SL .Q5MIN PRN PRN Reason: Chest Pain Ondansetron HCl (Ondansetron 4 Mg/2 Ml Inj) 4 mg IV Q3H PRN PRN Reason: Nausea And Vomiting Oxycodone/Acetaminophen (Oxycodone /Acetaminophen 5-325mg Tab) 1 tab PO Q6H PRN PRN Reason: Pain, Moderate (4-6) Pantoprazole Sodium (Pantoprazole 40 Mg Tab) 40 mg PO QDAC [facility] Sodium Chloride (Sodium Chloride 0.9% 10 Ml Flush Syringe) 10 ml IV BID JARROD Sodium Chloride (Sodium Chloride 0.9% 10 Ml Flush Syringe) 10 ml IV PRN PRN PRN Reason: LINE FLUSH Ticagrelor (Ticagrelor 90 Mg Tab) 90 mg PO BID [facility] Last Admin: 11/17/20 04:54 Dose: 90 mg Documented by: Review of Systems All systems: negative Exam - Constitutional Vitals: Temp Pulse Resp BP Pulse Ox 98.0 F 47 L 11 L 100/54 98 11/17/20 03:43 11/17/20 04:55 11/17/20 04:40 11/17/20 04:55 11/17/20 04:40 General appearance: Present: no acute distress, well-nourished - EENT Eyes: Present: PERRL, EOM intact - Neck Neck: Present: supple - Respiratory Respiratory: bilateral: CTA - Cardiovascular Rhythm: regular Results - Labs CBC & Chem 7: 11/17/20 07:02 11/17/20 07:02 Labs: Abnormal lab results 11/16/20 11/16/20 11/16/20 Range/Units 17:42 17:42 17:42 WBC 12.9 H (4.5-11.0) K/mm3 Hgb 15.4 H (11.8-15.2) gm/dl Seg Neuts % (Manual) 80.0 H (40.0-70.0) % Lymphocytes % (Manual) 11.0 L (13.4-35.0) % Seg Neutrophils # Man 10.3 H (1.8-7.7) K/mm3 Monocytes # (Manual) 0.9 H (0.0-0.8) K/mm3 INR 1.18 H (0.87-1.13) Sodium 135 L (137-145) mmol/L Glucose 122 H (75-100) mg/dL Total Creatine Kinase (55-170) units/L CK-MB (CK-2) (0.0-4.0) ng/mL CK-MB (CK-2) Rel Index (0-4) Troponin T (0.00-0.029) ng/mL HDL Cholesterol (40-59) mg/dL 11/17/20 Range/Units 07:02 WBC (4.5-11.0) K/mm3 Hgb (11.8-15.2) gm/dl Seg Neuts % (Manual) (40.0-70.0) % Lymphocytes % (Manual) (13.4-35.0) % Seg Neutrophils # Man (1.8-7.7) K/mm3 Monocytes # (Manual) (0.0-0.8) K/mm3 INR (0.87-1.13) Sodium (137-145) mmol/L Glucose (75-100) mg/dL Total Creatine Kinase 2246 H (55-170) units/L CK-MB (CK-2) 288.8 H (0.0-4.0) ng/mL CK-MB (CK-2) Rel Index 12.8 H (0-4) Troponin T 4.880 H* D (0.00-0.029) ng/mL HDL Cholesterol 32 L (40-59) mg/dL - Imaging and Cardiology Chest x-ray: image reviewed Assessment and Plan 64 y/o male with posterior FL Goal directed therapy Antiocoagulation per primary and cards wean fio2 to off Stable for transfer to [facility] floor.
[2020-11-17] MEDS: ASPIRIN 81 MG TAB CHEW PO SCH (10:45)
[2020-11-17] MEDS: NICOTINE 14 MG/24 HR PATCH TD SCH (10:46)
[2020-11-17] MEDS: PANTOPRAZOLE 40 MG TAB PO SCH (10:48)
--- NOTE | 2020-11-17 11:05 | Progress Note ---
Assessment and Plan Impression: 1. Acute posterior [place] status post primary PCI 2. 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 Hypertension 4. Hyperlipidemia 5. Tobacco abuse Plan : 1. Routine pharmacological therapy post primary PCI 2. Aggrastat for 18 hours 3. Dual antiplatelet therapy for 1 year 4. Beta-blockers high-dose statins 5. 2D echo 6. Smoking cessation 7. Stable to transfer to telemetry 8. If stable DC home tomorrow Subjective Date of service: 11/17/20 Principal diagnosis: STEMI Interval history: Patient doing much better. Chest pain resolved. Objective Vital Signs Temp Pulse Pulse Resp BP BP Pulse Ox 11/17/20 04:55 47 L 100/54 11/17/20 04:40 57 L 11 L 100/54 98 11/17/20 04:30 53 L 14 100/54 96 11/17/20 04:20 53 L 14 100/54 97 11/17/20 04:10 58 L 14 100/54 97 11/17/20 04:00 46 L 51 L 14 100/54 97 11/17/20 03:50 47 L 13 105/65 96 11/17/20 03:43 98.0 F 11/17/20 03:40 50 L 10 L 105/65 97 11/17/20 03:30 67 14 105/65 97 11/17/20 03:20 60 13 105/65 97 11/17/20 03:10 58 L 11 L 105/65 98 11/17/20 03:00 49 L 11 L 105/65 96 11/17/20 02:50 62 18 111/79 96 11/17/20 02:40 49 L 14 111/79 97 11/17/20 02:30 52 L 13 111/79 97 11/17/20 02:20 54 L 13 111/79 97 11/17/20 02:10 55 L 13 111/79 99 11/17/20 02:00 65 11 L 111/79 97 11/17/20 01:50 57 L 15 118/71 95 11/17/20 01:40 52 L 13 118/71 96 11/17/20 01:30 62 14 118/71 95 11/17/20 01:20 65 13 118/71 95 11/17/20 01:10 59 L 13 118/71 95 11/17/20 01:00 75 14 114/75 98 11/17/20 00:50 61 13 114/75 96 11/17/20 00:40 59 L 13 114/75 96 11/17/20 00:30 59 L 14 114/75 96 11/17/20 00:20 64 15 114/75 95 11/17/20 00:13 61 11/17/20 00:10 60 15 114/75 96 11/17/20 00:04 61 99 11/17/20 00:00 97.8 F 64 15 109/73 97 11/16/20 23:50 67 14 114/75 96 11/16/20 23:40 72 16 113/76 97 11/16/20 23:30 64 16 113/76 95 11/16/20 23:20 66 16 110/68 95 11/16/20 23:10 65 16 96/66 95 11/16/20 23:00 66 16 96/66 96 11/16/20 22:50 69 12 104/64 96 11/16/20 22:40 62 16 110/73 95 11/16/20 22:30 79 16 110/73 96 11/16/20 22:20 63 12 102/68 97 11/16/20 22:10 61 16 111/70 95 11/16/20 22:00 61 17 111/70 96 11/16/20 21:50 61 14 110/68 96 11/16/20 21:40 65 16 103/66 95 11/16/20 21:30 95 H 16 108/72 97 11/16/20 21:20 64 16 108/72 97 11/16/20 21:10 70 15 106/66 96 11/16/20 21:00 62 16 106/66 96 11/16/20 20:54 62 11/16/20 20:50 72 12 118/59 97 11/16/20 20:40 69 15 99/69 95 11/16/20 20:30 67 11 L 100/68 98 11/16/20 20:23 98.1 F 11/16/20 20:20 64 18 100/68 97 11/16/20 20:15 73 99 11/16/20 20:10 67 12 119/65 97 11/16/20 20:04 119/65 95 11/16/20 20:00 98.1 F 73 11/16/20 18:16 60 17 116/68 100 01/16/21 18:13 97.7 F 56 L 17 95/67 100 11/16/20 17:45 17 100 11/16/20 17:32 60 18 123/63 100 11/16/20 17:31 60 18 123/63 100 - Physical Examination HEENT: Positive: Normocephaly Neck: Positive: neck supple, trachea midline Cardiac: Positive: Reg Rate and Rhythm Lungs: Positive: clear to auscultation Neuro: Positive: Grossly Intact Abdomen: Positive: Unremarkable Extremities: Present: normal (No hematoma left heart cath site) - Labs and Meds Cardiac Enzymes 11/16/20 11/17/20 Range/Units 17:42 07:02 AST 17 (5-40) units/L CK-MB (CK-2) 288.8 H (0.0-4.0) ng/mL Coagulation 11/16/20 Range/Units 17:42 PT 14.8 (12.2-14.9) Sec. INR 1.18 H (0.87-1.13) APTT 26.2 (24.2-36.6) Sec. Lipids 11/17/20 Range/Units 07:02 Triglycerides 79 (2-149) mg/dL Cholesterol 94 (50-199) mg/dL HDL Cholesterol 32 L (40-59) mg/dL Cholesterol/HDL Ratio 2.93 % CBC 11/16/20 11/17/20 Range/Units 17:42 07:02 WBC 12.9 H 8.6 (4.5-11.0) K/mm3 RBC 4.93 4.39 (3.65-5.03) M/mm3 Hgb 15.4 H 13.8 (11.8-15.2) gm/dl Hct 45.5 40.7 (35.5-45.6) % Plt Count 245 205 (140-440) K/mm3 Lymph # (Auto) 1.7 (1.2-5.4) K/mm3 [place] # (Auto) 0.6 (0.0-0.8) K/mm3 Eos # (Auto) 0.3 (0.0-0.4) K/mm3 Baso # (Auto) 0.1 (0.0-0.1) K/mm3 Comprehensive Metabolic Panel 01/16/21 01/17/21 Range/Units 17:42 07:02 Sodium 135 L 138 (137-145) mmol/L Potassium 4.0 4.1 (3.6-5.0) mmol/L Chloride 99.3 105.2 (98-107) mmol/L Carbon Dioxide 25 29 (22-30) mmol/L BUN 19 15 (9-20) mg/dL Creatinine 0.9 0.8 (0.8-1.3) mg/dL Glucose 122 H 83 (75-100) mg/dL Calcium 9.2 8.6 (8.4-10.2) mg/dL AST 17 (5-40) units/L ALT 20 (7-56) units/L Alkaline Phosphatase 86 (35-129) units/L Total Protein 6.3 (6.3-8.2) g/dL Albumin 4.4 (3.9-5) g/dL - Imaging and Cardiology EKG: report reviewed (Sinus bradycardia heart rate of 57/min nonspecific and v entricular conduction delay acute posterior infarct ST depression on exam V2 V3 and V4)
[2020-11-17] MEDS: SODIUM CHLORIDE 0.9% 1000 ML 1,000 ML IV SCH (17:58)
--- NOTE | 2020-11-18 01:23 | Progress Note ---
Assessment and Plan Clinical care statement The high probability OF a clinically significant sudden or life-threatening deterioration of the cardiorespiratory system and endocrine system required my full and direct attention, intervention and postoperative management. The aggregate critical care time was 35 minutes. The time is in addition to time spent performing reported procedures but includes the followin: Data review and interpretation 2: Patient assessment and monitoring of vital signs 3: Documentation 4:: Medication orders and management - Patient Problems (1) STEMI (ST elevation myocardial infarction) Current Visit: Yes Status: Acute Qualifiers: Involved coronary artery: other coronary artery Qualified Code(s): I21.29 - ST elevation (STEMI) myocardial infarction involving other sites Plan to address problem: Patient was seen in [facility] and was diagnosed with acute STEMI and sent to cath lab manager for cardiac cath and pci Cath findings-- Angiogram revealed in the setting of an acute anterior STEMI OH 100% occlusion of the circumflex. PCI of the circumflex was done stent was placed IV heparin was used to maintain therapeutic anticoagulation therapy. Also Aggrastat was started. 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 fib s/p successful cardioversion Moderately reduced LV systolic function with inferior hypokinesis EF is 35 to 40% Patient on Aggrastat for 18 hrs (2) Ventricular fibrillation Current Visit: Yes Status: Acute Plan to address problem: Patient had ventricular fibrillation during the cardiac cath procedure. Patient was cardioverted immediately and has been in stable sinus rhythm (3) Sinus bradycardia Current Visit: Yes Status: Acute Plan to address problem: Resolved after the stent placement (4) CAD (coronary artery disease) Current Visit: Yes Status: Chronic Qualifiers: Coronary Disease-Associated Artery/Lesion type: [place] artery Plan to address problem: Cont DAPT (5) HLD (hyperlipidemia) Current Visit: Yes Status: Chronic Qualifiers: Hyperlipidemia type: mixed hyperlipidemia Qualified Code(s): E78.2 - Mixed hyperlipidemia Plan to address problem: On High intensity Statins (6) Nicotine dependence Current Visit: Yes Status: Chronic Qualifiers: Nicotine product type: cigarettes Plan to address problem: Counselled and started on Nicoderm patch (7) DVT prophylaxis Current Visit: Yes Status: Acute Plan to address problem: On Aggrastat and GI prophyaxis Subjective Date of service: 11/17/20 Principal diagnosis: STEMI Interval history: 64-year-old gentleman presents to the ER via EMS. Patient states he was in his usual state of health, when approximately 2 hours ago, he developed sudden severe crushing chest pain, which radiates down his right upper extremity, and he states feels like "to high heels sitting on my chest." He had diaphoresis which is now resolved. He had nausea which is now resolved. He had shortness of breath which is now resolved. He took aspirin prior to arrival. He took 4 tablets of nitroglycerin in total prior to arrival, which decreased his pain from a 10 to a 9. He denies fever, loss of taste and loss of smell. He denies methamphetamine/cocaine/illicit drug use. He denies vomiting, hematemesis and bright red blood per rectum. He is still having active pain at this time. MD Complaint: chest pain -: Sudden, hour(s) (2) Onset: during rest Pain Location: substernal Pain Radiation: RUE Severity: severe Severity scale (0 -10): 10 Quality: pressure Consistency: constant Improves With: nothing Worsens With: nothing Treatments Prior to Arrival: aspirin, nitroglycerin Aspirin use within the Past 7 Days: (1) Yes Patient had ventricular fibrillation during the cardiac cath procedure which was cardioverted immediately Day #2 11/17/2020 Patient on Aggrastat and heparin Patient doing well Objective - Constitutional Vitals: Vital Signs - 12hr 11/17/20 11/17/20 11/17/20 13:30 13:40 13:50 Temperature Pulse Rate 60 66 60 Pulse Rate [ Apical] Pulse Rate [ Right Ulnar] Respiratory 16 21 17 Rate Blood Pressure 135/71 135/71 135/71 O2 Sat by Pulse 93 98 99 Oximetry 11/17/20 11/17/20 11/17/20 14:00 14:10 14:20 Temperature Pulse Rate 50 L 52 L 53 L Pulse Rate [ Apical] Pulse Rate [ Right Ulnar] Respiratory 15 15 15 Rate Blood Pressure 135/71 106/52 106/52 O2 Sat by Pulse 99 99 98 Oximetry 11/17/20 11/17/20 11/17/20 14:30 14:40 14:50 Temperature Pulse Rate 53 L 53 L 53 L Pulse Rate [ Apical] Pulse Rate [ Right Ulnar] Respiratory 14 16 16 Rate Blood Pressure 106/52 106/52 106/52 O2 Sat by Pulse 99 97 97 Oximetry 11/17/20 11/17/20 11/17/20 15:00 15:10 15:20 Temperature Pulse Rate 62 62 60 Pulse Rate [ Apical] Pulse Rate [ Right Ulnar] Respiratory 16 20 18 Rate Blood Pressure 108/56 108/56 108/56 O2 Sat by Pulse 97 96 99 Oximetry 11/17/20 11/17/20 11/17/20 15:30 15:40 15:50 Temperature Pulse Rate 56 L 55 L 54 L Pulse Rate [ Apical] Pulse Rate [ Right Ulnar] Respiratory 17 14 14 Rate Blood Pressure 108/56 108/56 108/56 O2 Sat by Pulse 98 98 97 Oximetry 11/17/20 11/17/20 11/17/20 16:00 16:10 16:20 Temperature 97.2 F L Pulse Rate 57 L 57 L 58 L Pulse Rate [ Apical] Pulse Rate [ 51 L Right Ulnar] Respiratory 17 17 18 Rate Blood Pressure 125/71 108/56 125/71 O2 Sat by Pulse 97 97 97 Oximetry 11/17/20 11/17/20 11/17/20 16:30 16:40 16:50 Temperature Pulse Rate 62 60 61 Pulse Rate [ Apical] Pulse Rate [ Right Ulnar] Respiratory 18 15 17 Rate Blood Pressure 125/71 125/71 O2 Sat by Pulse 99 92 99 Oximetry 11/17/20 11/17/20 11/17/20 17:00 17:10 17:20 Temperature Pulse Rate 56 L 60 63 Pulse Rate [ Apical] Pulse Rate [ Right Ulnar] Respiratory 18 15 16 Rate Blood Pressure 136/74 136/74 136/74 O2 Sat by Pulse 99 100 99 Oximetry 11/17/20 11/17/20 11/17/20 17:30 17:40 17:50 Temperature Pulse Rate 59 L 60 69 Pulse Rate [ Apical] Pulse Rate [ Right Ulnar] Respiratory 17 19 20 Rate Blood Pressure 136/74 136/74 136/74 O2 Sat by Pulse 99 98 98 Oximetry 11/17/20 11/17/20 11/17/20 18:00 18:10 18:20 Temperature Pulse Rate 64 67 70 Pulse Rate [ Apical] Pulse Rate [ Right Ulnar] Respiratory 19 16 16 Rate Blood Pressure 137/87 137/87 137/87 O2 Sat by Pulse 97 77 L 96 Oximetry 11/17/20 11/17/20 11/17/20 18:30 18:40 18:50 Temperature Pulse Rate 71 68 69 Pulse Rate [ Apical] Pulse Rate [ Right Ulnar] Respiratory 16 17 16 Rate Blood Pressure 137/87 137/87 137/87 O2 Sat by Pulse 97 81 L 98 Oximetry 11/17/20 11/17/20 11/17/20 19:00 19:10 19:20 Temperature Pulse Rate 67 66 69 Pulse Rate [ Apical] Pulse Rate [ Right Ulnar] Respiratory 10 L 15 21 Rate Blood Pressure 136/75 136/75 136/75 O2 Sat by Pulse 96 97 96 Oximetry 11/17/20 11/17/20 11/17/20 19:30 19:40 19:50 Temperature Pulse Rate 63 66 68 Pulse Rate [ Apical] Pulse Rate [ Right Ulnar] Respiratory 19 18 18 Rate Blood Pressure 136/75 136/75 136/75 O2 Sat by Pulse 99 99 96 Oximetry 11/17/20 11/17/20 11/17/20 20:00 20:10 20:20 Temperature 97.7 F Pulse Rate 64 65 66 Pulse Rate [ Apical] Pulse Rate [ Right Ulnar] Respiratory 16 20 17 Rate Blood Pressure 131/73 131/73 131/73 O2 Sat by Pulse 97 98 99 Oximetry 11/17/20 11/17/20 11/17/20 20:30 20:40 20:50 Temperature Pulse Rate 61 69 63 Pulse Rate [ Apical] Pulse Rate [ Right Ulnar] Respiratory 15 20 17 Rate Blood Pressure 131/73 131/73 131/73 O2 Sat by Pulse 98 97 97 Oximetry 11/17/20 11/17/20 11/17/20 21:00 21:10 21:20 Temperature Pulse Rate 67 63 68 Pulse Rate [ Apical] Pulse Rate [ Right Ulnar] Respiratory 14 19 13 Rate Blood Pressure 123/56 123/56 131/73 O2 Sat by Pulse 99 97 97 Oximetry 11/17/20 11/17/20 11/17/20 21:30 22:52 23:00 Temperature Pulse Rate 65 65 Pulse Rate [ 65 Apical] Pulse Rate [ Right Ulnar] Respiratory 20 16 Rate Blood Pressure 131/73 131/73 O2 Sat by Pulse 96 100 Oximetry 11/18/20 11/18/20 00:14 00:43 Temperature 122.0 F H 98.2 F Pulse Rate 66 Pulse Rate [ Apical] Pulse Rate [ Right Ulnar] Respiratory 18 Rate Blood Pressure 114/70 O2 Sat by Pulse 96 Oximetry General appearance: Present: no acute distress, well-nourished - EENT Eyes: PERRL, EOM intact ENT: hearing intact, clear oral mucosa Ears: bilateral: normal - Neck Neck: supple, normal ROM - Respiratory Respiratory effort: normal Respiratory: bilateral: CTA - Breasts Breasts: normal - Cardiovascular Heart rate: 78 Rhythm: regular Heart Sounds: Present: S1 & S2. Absent: gallop, rub Extremities: pulses intact, No edema, normal color, Full ROM - Gastrointestinal General gastrointestinal: Present: soft, non-tender, non-distended, normal bowel sounds - Genitourinary Male genitourinary: normal - Integumentary Integumentary: clear, warm, dry - Musculoskeletal Musculoskeletal: 1, strength equal bilaterally - Neurologic Neurologic: moves all extremities - Psychiatric Psychiatric: memory intact, appropriate mood/affect, intact judgment & insight - Labs CBC & Chem 7: 11/17/20 07:02 11/17/20 07:02 Labs: Abnormal lab results 11/17/20 Range/Units 07:02 Total Creatine Kinase 2246 H (55-170) units/L CK-MB (CK-2) 288.8 H (0.0-4.0) ng/mL CK-MB (CK-2) Rel Index 12.8 H (0-4) Troponin T 4.880 H* D (0.00-0.029) ng/mL HDL Cholesterol 32 L (40-59) mg/dL HEART Score - HEART Score EKG: Significant ST-depression Age: 45-65 Risk factors: 1-2 risk factors Troponin: Troponin T 4.880 ng/mL (0.00-0.029) H* D 11/17/20 07:02 Troponin: < normal limit - Critical Actions Critical Actions: 4-6 pts:12-16.6% risk of adverse cardiac event. Should be admitted
[2020-11-18 05:41] LABS: Hematocrit 38.2 % (35.5-45.6); Hemoglobin 13.2 gm/dl (11.8-15.2)
[2020-11-18] MEDS: PANTOPRAZOLE 40 MG TAB PO SCH (07:32)
[2020-11-18] MEDS: SODIUM CHLORIDE 0.9% 1000 ML 1,000 ML IV SCH (07:32)
[2020-11-18] MEDS: ASPIRIN 81 MG TAB CHEW PO SCH (08:59)
[2020-11-18] MEDS: carvediloL 6.25 MG TAB PO SCH (08:59)
[2020-11-18] MEDS: NICOTINE 14 MG/24 HR PATCH TD SCH (09:00)
[2020-11-18] MEDS: TICAGRELOR 90 MG TAB PO SCH (09:00)
--- NOTE | 2020-11-18 12:30 | Progress Note ---
Assessment and Plan - Patient Problems (1) STEMI (ST elevation myocardial infarction) Current Visit: Yes Status: Acute Qualifiers: Involved coronary artery: other coronary artery Qualified Code(s): I21.29 - ST elevation (STEMI) myocardial infarction involving other sites Plan to address problem: The patient is a 64-year-old man with coronary artery disease who underwent staged two-vessel coronary stenting in 2010. He was on dual oral antiplatelet therapy with Plavix for the following 9 years until a year ago when Plavix was discontinued, and has since then been continued on aspirin alone. He presented to the hospital at this time with acute coronary syndrome, and emergency cardiac catheterization revealed complete occlusion of the proximal circumflex, at the proximal border of the previous stent. This appeared to represent either occlusive restenosis or very late thrombosis. The other previous stent in the mid right coronary artery was widely patent. He underwent successful primary intervention with reestablishment of IVANNA-3 flow, and further implantation of an overlapping 2.75 x 18 mm drug eluting stent in the mid circumflex. There is a residual ischemic cardiomyopathy with mod erate severity left ventricular dysfunction with ejection fraction 35 to 40%. Today, patient looks and feels well and is recommended for cardiac discharge on guideline directed medical therapy including: Atorvastatin 80 mg, carvedilol 6.25 mg twice daily, aspirin 81 mg, Brilinta 90 mg twice daily, and lisinopril 2.5 mg. He will follow up with his primary clinical resource coordinator Dr. Barnett in 7 to 10 days. Subjective Date of service: 11/18/20 Principal diagnosis: STEMI Interval history: Patient is comfortable, no cardiac complaints, no chest pain and no shortness of breath. He looks and feels well. On cafeteria monitor he has a normal sinus rhythm at 71. Objective Vital Signs Temp Pulse Pulse Pulse Resp BP Pulse Ox 11/18/20 11:31 98.0 F 61 18 111/61 92 11/18/20 08:59 66 11/18/20 07:31 98.7 F 64 18 101/55 94 11/18/20 04:38 98.0 F 63 18 108/65 92 11/18/20 03:35 98.2 F 11/18/20 00:43 98.2 F 11/18/20 00:14 122.0 F H 66 18 114/70 96 11/17/20 23:17 60 11/17/20 23:00 65 16 100 11/17/20 22:52 65 131/73 11/17/20 21:30 65 20 131/73 96 11/17/20 21:20 68 13 131/73 97 11/17/20 21:10 63 19 123/56 97 11/17/20 21:00 67 14 123/56 99 11/17/20 20:50 63 17 131/73 97 11/17/20 20:40 69 20 131/73 97 11/17/20 20:30 61 15 131/73 98 11/17/20 20:20 66 17 131/73 99 11/17/20 20:10 65 20 131/73 98 11/17/20 20:00 97.7 F 64 16 131/73 97 11/17/20 19:50 68 18 136/75 96 11/17/20 19:40 66 18 136/75 99 11/17/20 19:30 63 19 136/75 99 11/17/20 19:20 69 21 136/75 96 11/17/20 19:10 66 15 136/75 97 11/17/20 19:00 67 10 L 136/75 96 11/17/20 18:50 69 16 137/87 98 11/17/20 18:40 68 17 137/87 81 L 11/17/20 18:30 71 16 137/87 97 11/17/20 18:20 70 16 137/87 96 11/17/20 18:10 67 16 137/87 77 L 11/17/20 18:00 64 19 137/87 97 11/17/20 17:50 69 20 136/74 98 11/17/20 17:40 60 19 136/74 98 11/17/20 17:30 59 L 17 136/74 99 11/17/20 17:20 63 16 136/74 99 11/17/20 17:10 60 15 136/74 100 11/17/20 17:00 56 L 18 136/74 99 11/17/20 16:50 61 17 125/71 99 11/17/20 16:40 60 15 125/71 92 11/17/20 16:30 62 18 99 11/17/20 16:20 58 L 18 125/71 97 11/17/20 16:10 57 L 17 108/56 97 11/17/20 16:00 97.2 F L 57 L 51 L 17 125/71 97 11/17/20 15:50 54 L 14 108/56 97 11/17/20 15:40 55 L 14 108/56 98 11/17/20 15:30 56 L 17 108/56 98 11/17/20 15:20 60 18 108/56 99 11/17/20 15:10 62 20 108/56 96 11/17/20 15:00 62 16 108/56 97 11/17/20 14:50 53 L 16 106/52 97 11/17/20 14:40 53 L 16 106/52 97 11/17/20 14:30 53 L 14 106/52 99 11/17/20 14:20 53 L 15 106/52 98 11/17/20 14:10 52 L 15 106/52 99 11/17/20 14:00 50 L 15 135/71 99 11/17/20 13:50 60 17 135/71 99 11/17/20 13:40 66 21 135/71 98 11/17/20 13:30 60 16 135/71 93 11/17/20 13:20 59 L 16 135/71 99 - Physical Examination General: No Apparent Distress HEENT: Positive: Normocephaly Neck: Positive: neck supple, trachea midline Cardiac: Positive: Reg Rate and Rhythm Lungs: Positive: clear to auscultation Neuro: Positive: Grossly Intact Abdomen: Positive: Unremarkable Skin: Positive: Clear Extremities: Absent: edema - Labs and Meds CBC 11/18/20 Range/Units 04:41 Hgb 13.2 (11.8-15.2) gm/dl Hct 38.2 (35.5-45.6) % Plt Count 195 (140-440) K/mm3 - Imaging and Cardiology EKG: report reviewed (Sinus bradycardia heart rate of 57/min nonspecific and ventricular conduction delay acute posterior infarct ST depression on exam V2 V3 and V4)
[2020-11-18] MEDS ORDERED: LISINOPRIL 5 MG TAB PO SCH (13:00)
--- NOTE | 2020-11-18 15:19 | Progress Note ---
Subjective Date of service: 11/18/20 Principal diagnosis: STEMI Interval history: Successful transition to the floor. STable with no pulmonary issues. Objective - Constitutional Vitals: Vital Signs - 12hr 11/18/20 11/18/20 11/18/20 03:35 04:38 07:31 Temperature 98.2 F 98.0 F 98.7 F Pulse Rate 63 64 Respiratory 18 18 Rate Blood Pressure 108/65 101/55 O2 Sat by Pulse 92 94 Oximetry 11/18/20 11/18/20 11/18/20 08:59 10:17 11:31 Temperature 98.0 F Pulse Rate 66 61 Respiratory 18 Rate Blood Pressure 111/61 O2 Sat by Pulse 99 92 Oximetry - Labs CBC & Chem 7: 11/18/20 04:41 11/17/20 07:02 Medications & Allergies - Medications Allergies/Adverse Reactions: Allergies No Known Allergies Allergy (Unverified 07/05/13 11:07) Home Medications: Home Medications Medication Instructions Recorded Confirmed Last Taken Type Aspirin 81 mg PO QDAY 07/05/13 07/05/13 07/05/13 History Clopidogrel [Plavix] 75 mg PO QDAY 07/05/13 07/05/13 07/05/13 History Nitroglycerin 1 tab-cap SUBLINGUAL PRN 07/05/13 07/05/13 Unknown History Simvastatin [Zocor TAB] 40 mg PO QDAY 07/05/13 07/05/13 Unknown History Active Medications: Generic Name Dose Route Start Last Admin Trade Name Freq PRN Reason Stop Dose Admin Acetaminophen 650 mg 11/16/20 22:58 Acetaminophen 325 Mg Tab PO Q4H PRN Pain MILD(1-3)/Fever >100.5/OKEEFE Aspirin 81 mg 11/17/20 10:00 11/18/20 08:59 Aspirin 81 Mg Tab Chew PO 81 mg QDAY JARROD Administration Atorvastatin Calcium 80 mg 11/16/20 22:00 11/17/20 22:52 Atorvastatin 40 Mg Tab PO 80 mg QHS JARROD Administration Carvedilol 6.25 mg 11/17/20 05:00 11/18/20 08:59 Carvedilol 6.25 Mg Tab PO 6.25 mg BID JARROD Administration Hydromorphone HCl 0.5 mg 11/16/20 22:58 Hydromorphone 1 Mg/1 Ml Inj IV Q3H PRN Pain , Severe (7-10) Sodium Chloride 1,000 mls @ 75 mls/hr 11/16/20 19:45 11/18/20 07:32 Nacl 0.9% 1000 Ml IV 75 mls/hr DIRECT JARROD Administration Lisinopril 2.5 mg 11/18/20 13:00 Lisinopril 5 Mg Tab PO QDAY JARROD Metoclopramide HCl 10 mg 11/16/20 22:58 Metoclopramide 10 Mg/2 Ml Inj IV Q6H PRN Nausea And Vomiting Nicotine 14 mg 11/17/20 10:00 11/18/20 09:00 Nicotine 14 Mg/24 Hr Patch TD 14 mg QDAY JARROD Administration Nitroglycerin 0.4 mg 11/16/20 17:46 Nitroglycerin 0.4 Mg Tab Subl SL .Q5MIN PRN Chest Pain Ondansetron HCl 4 mg 11/16/20 22:58 Ondansetron 4 Mg/2 Ml Inj IV Q3H PRN Nausea And Vomiting Oxycodone/Acetaminophen 1 tab 11/16/20 22:58 Oxycodone /Acetaminophen 5-325mg Tab PO Q6H PRN Pain, Moderate (4-6) Pantoprazole Sodium 40 mg 11/17/20 07:30 11/18/20 07:32 Pantoprazole 40 Mg Tab PO 40 mg QDAC JARROD Administration Sodium Chloride 10 ml 11/17/20 10:00 11/18/20 09:00 Sodium Chloride 0.9% 10 Ml Flush Syringe IV 10 ml BID JARROD Administration Sodium Chloride 10 ml 11/16/20 22:58 Sodium Chloride 0.9% 10 Ml Flush Syringe IV PRN PRN LINE FLUSH Ticagrelor 90 mg 11/17/20 05:00 11/18/20 09:00 Ticagrelor 90 Mg Tab PO 90 mg BID JARROD Administration HEART Score - HEART Score EKG: Significant ST-depression Age: 45-65 Risk factors: 1-2 risk factors Troponin: Troponin T 4.880 ng/mL (0.00-0.029) H* D 11/17/20 07:02 Troponin: < normal limit - Critical Actions Critical Actions: 4-6 pts:12-16.6% risk of adverse cardiac event. Should be admitted
[2020-11-18 16:09] VITALS: BP 112/91
--- NOTE | 2020-11-18 16:10 | Discharge Summary ---
Providers - Providers Date of Admission: 11/16/20 17:57 Date of discharge: 11/18/20 Attending physician: TAY CENTENO 11/16/20 Consult to Cardiac Rehabilitation [CONS] Routine Reason For Exam: post pci 11/16/20 17:45 Consult to Physician [CONS] Urgent Comment: Consulting Provider: NURY WATKINS Physician Instructions: Reason For Exam: stemi 11/16/20 17:57 Consult to Physician [CONS] Urgent Comment: Consulting Provider: DUNIA DENNIS Physician Instructions: Reason For Exam: stemi Primary care physician: AIDEN DOMINGO Hospitalization Condition: Critical Hospital course: - Subjective Date of service: 11/18/20 Principal diagnosis: STEMI Interval history: 64-year-old gentleman presents to the ER via EMS. Patient states he was in his usual state of health, when approximately 2 hours ago, he developed sudden severe crushing chest pain, which radiates down his right upper extremity, and he states feels like "to high heels sitting on my chest." He had diaphoresis which is now resolved. He had nausea which is now resolved. He had shortness of breath which is now resolved. He took aspirin prior to arrival. He took 4 tablets of nitroglycerin in total prior to arrival, which decreased his pain from a 10 to a 9. He denies fever, loss of taste and loss of smell. He denies methamphetamine/cocaine/illicit drug use. He denies vomiting, hematemesis and bright red blood per rectum. He is still having active pain at this time. MD Complaint: chest pain -: Sudden, hour(s) (2) Onset: during rest Pain Location: substernal Pain Radiation: RUE Severity: severe Severity scale (0 -10): 10 Quality: pressure Consistency: constant Improves With: nothing Worsens With: nothing Treatments Prior to Arrival: aspirin, nitroglycerin Aspirin use within the Past 7 Days: (1) Yes Patient had ventricular fibrillation during the cardiac cath procedure which was cardioverted immediately Day #2 11/17/2020 Patient on Aggrastat and heparin Patient doing well day #3 November 18, 2020 Patient is stable for discharge Patient is cleared by cardiology for discharge Patient had cardiac cath and PCI in the circumflex with IVANNA-3 flow Patient Problems (1) STEMI (ST elevation myocardial infarction) Current Visit: Yes Status: Acute Qualifiers: Involved coronary artery: other coronary artery Qualified Code(s): I21.29 - ST elevation (STEMI) myocardial infarction involving other sites Plan to address problem: Patient was seen in [facility] and was diagnosed with acute STEMI and [facility] cardiac cath and pci Cath findings-- Angiogram revealed in the setting of an acute anterior STEMI IL 100% occlusion of the circumflex. PCI of the circumflex was done stent was placed IV heparin was used to maintain therapeutic anticoagulation therapy. Also Aggrastat was started. 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 fib s/p successful cardioversion Moderately reduced LV systolic function with inferior hypokinesis EF is 35 to 40% Patient on Aggrastat for 18 hrs Involved coronary artery: other coronary artery Qualified Code(s): I21.29 - ST elevation (STEMI) myocardial infarction involving other sites Plan to address problem: The patient is a 64-year-old man with coronary artery disease who underwent staged two-vessel coronary stenting in 2010. He was on dual oral antiplatelet therapy with Plavix for the following 9 years until a year ago when Plavix was discontinued, and has since then been continued on aspirin alone. He presented to the hospital at this time with acute coronary syndrome, and emergency cardiac catheterization revealed complete occlusion of the proximal circumflex, at the proximal border of the previous stent. This appeared to represent either occlusive restenosis or very late thrombosis. The other previous stent in the mid right coronary artery was widely patent. He underwent successful primary intervention with reestablishment of IVANNA-3 flow, and further implantation of an overlapping 2.75 x 18 mm drug eluting stent in the mid circumflex. There is a residual ischemic cardiomyopathy with moderate severity left ventricular dysfunction with ejection fraction 35 to 40%. Today, patient looks and feels well and is recommended for cardiac discharge on guideline directed medical therapy including: Atorvastatin 80 mg, carvedilol 6.25 mg twice daily, aspirin 81 mg, Brilinta 90 mg twice daily, and lisinopril 2.5 mg. 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 (2) Ventricular fibrillation Current Visit: Yes Status: Acute Plan to address problem: Patient had ventricular fibrillation during the cardiac cath procedure. Patient was cardioverted immediately and has been in stable sinus rhythm (3) Sinus bradycardia Current Visit: Yes Status: Acute Plan to address problem: Resolved after the stent placement (4) CAD (coronary artery disease) Current Visit: Yes Status: Chronic Qualifiers: Coronary Disease-Associated Artery/Lesion type: [place] artery Plan to address problem: Cont DAPT (5) HLD (hyperlipidemia) Current Visit: Yes Status: Chronic Qualifiers: Hyperlipidemia type: mixed hyperlipidemia Qualified Code(s): E78.2 - Mixed hyperlipidemia Plan to address problem: On High intensity Statins (6) Nicotine dependence Current Visit: Yes Status: Chronic Qualifiers: Nicotine product type: cigarettes Plan to address problem: Counselled and started on Nicoderm patch Disposition: DC-01 TO HOME OR SELFCARE Time spent for discharge: 35 minutes - Discharge Diagnoses (1) STEMI (ST elevation myocardial infarction) Status: Acute Qualifiers: Involved coronary artery: other coronary artery Qualified Code(s): I21.29 - ST elevation (STEMI) myocardial infarction involving other sites (2) Ventricular fibrillation Status: Acute (3) Sinus bradycardia Status: Acute (4) CAD (coronary artery disease) Status: Chronic Qualifiers: Coronary Disease-Associated Artery/Lesion type: [place] artery (5) HLD (hyperlipidemia) Status: Chronic Qualifiers: Hyperlipidemia type: mixed hyperlipidemia Qualified Code(s): E78.2 - Mixed hyperlipidemia (6) Nicotine dependence Status: Chronic Qualifiers: Nicotine product type: cigarettes (7) DVT prophylaxis Status: Acute Core Measure Documentation - Palliative Care Palliative Care/ Comfort Measures: Not Applicable - Core Measures Any of the following diagnoses?: acute IL - Acute IL Discharge Requirements Aspirin at discharge: Yes SHRILEY/ARB for LVSD if EF <40%: Yes Beta michael at discharge: Yes Statin for LDL = or >100 mg/dl on DC: Yes Exam - Constitutional Vitals: Temp Pulse Resp BP Pulse Ox 98.0 F 59 L 18 112/91 95 11/18/20 15:24 11/18/20 15:24 11/18/20 15:24 11/18/20 15:24 11/18/20 15:24 General appearance: Present: no acute distress, well-nourished - EENT Eyes: Present: PERRL ENT: hearing intact, clear oral mucosa - Neck Neck: Present: supple, normal ROM - Respiratory Respiratory effort: normal Respiratory: bilateral: CTA - Cardiovascular Heart rate: 78 Rhythm: regular Heart Sounds: Present: S1 & S2. Absent: rub, click - Extremities Extremities: no ischemia, pulses intact, pulses symmetrical, No edema Peripheral Pulses: within normal limits - Abdominal General gastrointestinal: Present: soft, non-tender, non-distended, normal bowel sounds Male genitourinary: Present: normal - Rectal Rectal Exam: deferred - Integumentary Integumentary: Present: clear, warm, dry - Musculoskeletal Musculoskeletal: gait normal, strength equal bilaterally - Psychiatric Psychiatric: appropriate mood/affect, intact judgment & insight - Neurologic Neurologic: CNII-XII intact, moves all extremities - Allied Health Allied health notes reviewed: nursing, case management Plan Activity: no restrictions Diet: low fat, low cholesterol, low salt Follow up with: AIDEN DOMINGO MD [Primary Care Provider] - 3-5 Days SUMAYA CONCEPCION MD [Staff Physician] - 7 Days
== END 2020-11-19 05:34 | disposition home or self-care (01) | DRG 246 ==
LOC: ED 17:24 → CC1 17:57 → OBSVTOIN 17:57 → 4A 11-17 22:05
PROVIDERS: ADMIT Internal Medicine Cardiovascular Disease; ATTEND Internal Medicine
PROC: B2111ZZ Fluoroscopy of Multiple Coronary Arteries using Low Osmolar Contrast (ICD-10-PCS; principal; 2020-11-16)
PROC: 027034Z Dilation of Coronary Artery, One Artery with Drug-eluting Intraluminal Device, Percutaneous Approach (ICD-10-PCS; 2020-11-16)
PROC: B2151ZZ Fluoroscopy of Left Heart using Low Osmolar Contrast (ICD-10-PCS; 2020-11-16)
DX: I21.3 ST elevation (STEMI) myocardial infarction of unspecified site (principal); I49.01 Ventricular fibrillation; K21.9 Gastro-esophageal reflux disease without esophagitis; I25.110 Atherosclerotic heart disease of native coronary artery with unstable angina pectoris; Z79.899 Other long term (current) drug therapy; Z79.891 Long term (current) use of opiate analgesic; Z79.82 Long term (current) use of aspirin; Z79.01 Long term (current) use of anticoagulants; Z95.818 Presence of other cardiac implants and grafts
CPT/HCPCS: 36415; 71045; 80048; 80053; 80061; 82550; 82553; 83036; 83690; 83735; 84484; 85007; 85014; 85018; 85025; 85049; 85610; 85730; 92941; 93005; 93306; 93458; 96365; 96366; 96375; 96376; 99406; G0378; A9270-GY; C1725; C1769; C1874; C1887; C1894; C9606; J0171; J0461; J1644; J2001; J2250; J2270; J2370; J2405; J3010; J3246; J7030; J7040; Q9967